=== PATIENT | male | born 2000 | race Hispanic/Latino ===

== ENCOUNTER 2023-04-19 11:37 | Emergency (ER) | payer MEDICAID ==
[~2023-04-19] VITALS: Ht 180.3 cm; Wt 104.3 kg
[2023-04-19 12:06] LABS: BASOPHILS % (AUTO) 0.7 % (0.0-5.0); EOSINOPHILS % (AUTO) 3.7 % (0.0-8.0); HEMATOCRIT 42.7 % (42-54); LYMPHOCYTES % (AUTO) 33.7 % (21.0-51.0); MEAN CORPUSCULAR HEMOGLOBIN 28.6 pg (27.0-33.0); MEAN CORPUSCULAR HGB CONC 33.7 g/dL (32.0-36.0); MEAN CORPUSCULAR VOLUME 84.7 fL (80-100); MONOCYTES % (AUTO) 8.1 % (3.0-13.0); PLATELET COUNT (AUTO) 228 K/uL (130-400); RED BLOOD CELL COUNT(AUTO) 5.04 MIL/uL (4.50-6.20); RED CELL DISTRIBUTION WIDTH 12.8 % (11.0-15.5); WHITE BLOOD COUNT (AUTO) 8.9 K/uL (4.8-10.8)
[2023-04-19] MEDS ORDERED: 0.9%NACL 1000ML 1,000 ML IV ONE (12:30)
[2023-04-19 12:57] LABS: AMPHET/METH SCREEN,URINE NEGATIVE (NEGATIVE); BARBITURATE SCREEN, URINE NEGATIVE (NEGATIVE); BENZODIAZEPINES SCREEN,URINE NEGATIVE (NEGATIVE); CANNABINOID SCREEN,URINE POSITIVE (NEGATIVE); COCAINE SCREEN,URINE NEGATIVE (NEGATIVE); OPIATE SCREEN,URINE NEGATIVE (NEGATIVE); PHENCYCLIDINE SCREEN,URINE NEGATIVE (NEGATIVE)
[2023-04-19 13:01] LABS: ALBUMIN 3.4 g/dL (3.5-5.0); CREATININE 0.8 mg/dL (0.5-1.5); POTASSIUM 3.9 mmol/L (3.5-5.1); TOTAL PROTEIN, SERUM 6.1 g/dL (6.0-8.3)
[2023-04-19] MEDS ORDERED: HYDR25CA PO (13:30)
[2023-04-19] MEDS ORDERED: ALPRAZOLAM 1 MG TAB PO ONE (13:30)
[2023-04-19 13:51] VITALS: BP 126/70
== END 2023-04-19 14:01 | disposition home or self-care (01) ==
LOC: EDH 11:37
DX: F12.10 Cannabis abuse, uncomplicated (principal); R10.9 Unspecified abdominal pain; R55 Syncope and collapse
CPT/HCPCS: 99284; 96360; 84484; 80053; 80305; 85025; 36415; 93005; J7030

== ENCOUNTER 2025-03-20 01:46 | Emergency (ER) | payer MEDICAID ==
[~2025-03-20] VITALS: Ht 170.2 cm; Wt 72.6 kg
[~2025-03-20 01:46] MED LIST: HYDR25CA PO
--- NOTE | 2025-03-20 01:59 | NUR ---
PATIENT ARRIVED VIA EMS ACCOMPANIED BY KASEY COBOS. ONCE PATIENT WAS REGISTERED, MINE SAFETY DIRECTOR WALKED OUT OF EMERGENCY DEPARTMENT WITHOUT NOTIFYING ED STAFF
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
--- NOTE | 2025-03-20 02:33 | NUR ---
PATIENT REFUSED HAND XRAYS, GONZALEZ HANSEN NOTIFIED
[2025-03-20 02:42] LABS: BASOPHILS # (AUTO) 0.09 K/uL (0.00-0.20); BASOPHILS % (AUTO) 0.6 % (0.0-5.0); EOSINOPHILS # (AUTO) 0.08 K/uL (0.00-0.70); EOSINOPHILS % (AUTO) 0.5 % (0.0-8.0); LYMPHOCYTES # (AUTO) 1.2 K/uL (1.0-4.8); LYMPHOCYTES % (AUTO) 7.5 % (21.0-51.0); MEAN CORPUSCULAR HGB CONC 34.9 g/dL (32.0-36.0); MONOCYTES # (AUTO) 0.9 K/uL (0.1-1.0); MONOCYTES % (AUTO) 5.5 % (3.0-13.0); NEUTROPHILS # (AUTO) 13.4 K/uL (1.8-7.7); NEUTROPHILS % (AUTO) 85.3 % (40.0-77.0); PLATELET COUNT (AUTO) 258 K/uL (130-400); RED CELL DISTRIBUTION WIDTH 12.9 % (11.0-15.5); WHITE BLOOD COUNT (AUTO) 15.7 K/uL (4.8-10.8)
[2025-03-20 02:58] LABS: CREATININE 0.9 mg/dL (0.5-1.3)
[2025-03-20] MEDS: 0.9%NACL 1000ML 1,000 ML IV ONE (03:04)
[2025-03-20] MEDS: PoTASSium BIcarbonate/CIT AC 25 MEQ TABLET.EFF PO ONE (03:28)
--- NOTE | 2025-03-20 03:55 | NUR ---
PT CLEANED AT THIS TIME.
[2025-03-20 04:44] VITALS: BP 121/72; PULSE 102; RESP 16; TEMP 98; O2SAT 99
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
== END 2025-03-20 04:53 | disposition home or self-care (01) ==
LOC: EEVIPCON 01:46 → EDH 01:46
DX: S00.83XA Contusion of other part of head, initial encounter (principal); S00.33XA Contusion of nose, initial encounter; F17.200 Nicotine dependence, unspecified, uncomplicated; W03.XXXA Other fall on same level due to collision with another person, initial encounter; Y93.89 Activity, other specified; Y92.89 Other specified places as the place of occurrence of the external cause; Y99.8 Other external cause status
CPT/HCPCS: 99284; 82550; 80048 ×2; 80305; 85025 ×2; 36415 ×2; 70450; 70486; 96360; 99283; G0481; J7030

== ENCOUNTER 2025-03-20 07:47 | Emergency (ER) | payer MEDICAID ==
[~2025-03-20] VITALS: Ht 177.8 cm; Wt 95.0 kg
[2025-03-20 07:53] VITALS: BP 126/86; PULSE 86; RESP 22; TEMP 98.2; O2SAT 98
--- NOTE | 2025-03-20 08:13 | NUR ---
PATIENT PLACED IN P[place], PLACED ON SUICIDE PRECAUTIONS,PLACED IN LINE OF SIGHT, BELONGINGS GIVEN TO SECURITY.
[2025-03-20 08:26] LABS: BASOPHILS # (AUTO) 0.04 K/uL (0.00-0.20); BASOPHILS % (AUTO) 0.4 % (0.0-5.0); EOSINOPHILS # (AUTO) 0.02 K/uL (0.00-0.70); EOSINOPHILS % (AUTO) 0.2 % (0.0-8.0); HEMATOCRIT 46.8 % (42-54); IMMATURE GRANULOCYTE ABSOLUTE 0.09 K/uL (0-1); LYMPHOCYTES # (AUTO) 1.5 K/uL (1.0-4.8); LYMPHOCYTES % (AUTO) 14.5 % (21.0-51.0); MEAN CORPUSCULAR HEMOGLOBIN 29.8 pg (27.0-33.0); MEAN CORPUSCULAR HGB CONC 34.8 g/dL (32.0-36.0); MEAN CORPUSCULAR VOLUME 85.6 fL (79-99); MONOCYTES # (AUTO) 1.1 K/uL (0.1-1.0); MONOCYTES % (AUTO) 10.2 % (3.0-13.0); NEUTROPHILS # (AUTO) 7.8 K/uL (1.8-7.7); NEUTROPHILS % (AUTO) 73.8 % (40.0-77.0); PLATELET COUNT (AUTO) 224 K/uL (130-400); RED BLOOD CELL COUNT(AUTO) 5.47 MIL/uL (4.50-6.20); RED CELL DISTRIBUTION WIDTH 13.1 % (11.0-15.5); WHITE BLOOD COUNT (AUTO) 10.6 K/uL (4.8-10.8)
[2025-03-20 08:35] LABS: AMPHET/METH SCREEN,URINE NEGATIVE (NEGATIVE); BARBITURATE SCREEN, URINE NEGATIVE (NEGATIVE); BENZODIAZEPINES SCREEN,URINE NEGATIVE (NEGATIVE); CANNABINOID SCREEN,URINE POSITIVE (NEGATIVE); COCAINE SCREEN,URINE POSITIVE (NEGATIVE); OPIATE SCREEN,URINE NEGATIVE (NEGATIVE); PHENCYCLIDINE SCREEN,URINE NEGATIVE (NEGATIVE)
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
[2025-03-20 08:40] LABS: CARBON DIOXIDE 24 mmol/L (21-32); CHLORIDE 105 mmol/L (101-111); CREATININE 0.7 mg/dL (0.5-1.3); GLOMERULAR FILTR. RATE CALC 133 mL/min (>90); GLUCOSE,RANDOM 106 mg/dL (70-105); POTASSIUM 3.7 mmol/L (3.5-5.1); SODIUM SERUM 141 mmol/L (136-145); UREA NITROGEN, BLOOD 6 mg/dL (7-18)
[2025-03-20 08:55] LABS: ALCOHOL, BLOOD 22 mg/dL (0-10); SALICYLATE 3.1 mg/dL (2.8-20.0)
[2025-03-20 08:59] LABS: ACETAMINOPHEN < 1 mcg/mL (10-29)
[2025-03-20 09:01] LABS: CREATINE KINASE, TOTAL 575 U/L (21-232)
--- NOTE | 2025-03-20 09:10 | NUR ---
SPOKE TO [facility] HOTLINE WORKER IN REGARDS TO PT, THEY WILL SEND SALARY AND WAGE ADMINISTRATORGAME PROGRAMER TO COME EVAL PT.
[2025-03-20] MEDS ORDERED: 0.9%NACL 1000ML 1,000 ML IV ONE (09:30)
--- NOTE | 2025-03-20 11:00 | NUR ---
TROPICAL SCREENER AT BEDSIDE.
== END 2025-03-20 13:50 | disposition home or self-care (01) ==
LOC: EDH 07:47
DX: S00.83XA Contusion of other part of head, initial encounter (principal); S40.022A Contusion of left upper arm, initial encounter; S40.021A Contusion of right upper arm, initial encounter; R45.851 Suicidal ideations; F12.10 Cannabis abuse, uncomplicated; F14.10 Cocaine abuse, uncomplicated; F17.200 Nicotine dependence, unspecified, uncomplicated; Y04.0XXA Assault by unarmed brawl or fight, initial encounter; Y93.89 Activity, other specified; Y92.89 Other specified places as the place of occurrence of the external cause; Y99.8 Other external cause status
CPT/HCPCS: 99283; 82550; 80048; 80305; 85025; 36415; G0481